=== PATIENT | female | born 1950 | race Caucasian/White ===

== ENCOUNTER → 2017-06-04 | Outpatient (CLI) | payer MEDICARE, BC | END | disposition home or self-care (01) | LOC: KCIC MAMMO 13:14 | DX: Z12.31 Encounter for screening mammogram for malignant neoplasm of breast (principal) | CPT/HCPCS: 77063; 77067 ==

== ENCOUNTER → 2017-08-13 | Day surgery (SDC) | payer MEDICARE, BC ==
[~2017-08-13] MED LIST: LIDOCAINE 2% PF Vial for OR 5 ML VIAL.; PROPOFOL 40 ML IV
[2017-08-13] MEDS: IV RINGERS,LACTATED 1000ML 1,000 ML IV (06:37)
[2017-08-13 07:12] LABS: POC GLUCOSE 148 mg/dL (70-99)
== END ==
LOC: ENDOS 05:55
DX: K64.0 First degree hemorrhoids (principal); K52.9 Noninfective gastroenteritis and colitis, unspecified; M19.90 Unspecified osteoarthritis, unspecified site; E11.9 Type 2 diabetes mellitus without complications; I10 Essential (primary) hypertension; E78.00 Pure hypercholesterolemia, unspecified; E03.9 Hypothyroidism, unspecified; Z88.0 Allergy status to penicillin; Z88.2 Allergy status to sulfonamides; Z83.3 Family history of diabetes mellitus; Z80.41 Family history of malignant neoplasm of ovary; Z79.84 Long term (current) use of oral hypoglycemic drugs; Z79.899 Other long term (current) drug therapy; Z98.51 Tubal ligation status; Z98.890 Other specified postprocedural states
CPT/HCPCS: 45380; 82962; 88305; J2001; J2704

== ENCOUNTER → 2017-09-22 | Outpatient (CLI) | payer MEDICARE, BC | END | disposition home or self-care (01) | LOC: KCIC MRI 12:32 | DX: M51.16 Intervertebral disc disorders with radiculopathy, lumbar region (principal) | CPT/HCPCS: 72148 ==

== ENCOUNTER → 2018-06-30 | Outpatient (CLI) | payer MEDICARE, BC ==
[2017-08-13 07:52] VITALS: BP 147/68
[~2018-06-30] MED LIST changes: +ATEN50TA PO; +CARB15DR3 OP; +FENO145T30 PO; +GABA600T7 PO; +GLIP5TAB10 PO; +IBUP100O25 PO; +LEVO125T5 PO; -LIDOCAINE 2% PF Vial for OR 5 ML VIAL.; +LISI10TA2 PO; +METF500T16 PO; -PROPOFOL 40 ML IV
--- NOTE | 2018-06-30 16:07 | KCIC ---
History: Screening. History of benign left breast biopsy. Bilateral digital CC and MLO views were obtained with mammography and tomosynthesis. Computer aided detection was utilized with iCAD Second Look 7.2-H. Previous: June 04, 2017 and priors. There are scattered fibroglandular densities (Level 2 density).There are no suspicious masses, suspicious microcalcifications or areas of architectural distortion. Benign calcifications. IMPRESSION: Negative mammogram. Patient information was entered into the [employer] reminder system with a target due date for the next screening mammogram. Routine annual screening mammogram in one year advised. BI-RADS Category 1: Negative. If your mammogram demonstrates that you have dense breast tissue, which could hide abnormalities, and if you have other risk factors for breast cancer that have been identified, you might benefit from supplemental screening tests that may be suggested by your ordering physician. Dense breast tissue, in and of itself, is a relatively common condition. This information is not provided to cause undue concern, but rather to raise your awareness and to promote discussion with your physician regarding the presence of other risk factors, in addition to dense breast tissue. A report of your mammography results will be sent to you and your physician. You should contact your physician if you have any questions or concerns regarding this report. A mammogram does not have 100% sensitivity and therefore a negative imaging study should not delay further work up of a suspicious abnormality. "Our facility is accredited by the [employer] Mammography Program." Electronically signed by: Jerry Aragon MD (06/30/2018 4:04 PM) [facility]
== END | disposition home or self-care (01) ==
LOC: KCIC MAMMO 11:46
PROVIDERS: ATTEND Physician Assistant
DX: Z12.31 Encounter for screening mammogram for malignant neoplasm of breast (principal); N64.89 Other specified disorders of breast
CPT/HCPCS: 77063; 77067

== ENCOUNTER → 2018-07-02 | Outpatient (CLI) | payer MEDICARE ==
[2017-08-13 07:52] VITALS: BP 147/68
--- NOTE | 2018-07-02 13:06 | KCIC ---
MRI of the lumbar spine without contrast 07/02/2018 CLINICAL HISTORY: Chronic low back pain which radiates down the left leg. TECHNIQUE: Unenhanced T1-weighted and T2-weighted sagittal and axial and inversion recovery sagittal images of the lumbar spine were obtained. FINDINGS: Comparison study is dated 09/22/2017. Minimal S-shaped curvature of the thoracolumbar spine is seen. Mild anterolisthesis of L4 in relation L5 is noted. Degenerative signal changes are seen involving the L2-3, L3-4, L4-5 and L5-S1 discs. Degenerative signal changes are seen within the marrow surrounding these discs. Loss of height of the L5-S1 disc is noted. At the L1-2 disc space is a minimal generalized disc bulge. Degenerative changes are seen involving the facet joints bilaterally. These findings do not result in significant central spinal canal or neural foraminal stenosis. At the L2-3 disc space there is a mild generalized disc bulge. Superimposed on this disc bulge is a left paracentral focal disc protrusion. This measures 3.5 mm in AP diameter. Degenerative changes are seen involving the facet joints bilaterally. There is moderate ligamentum flavum hypertrophy bilaterally. There is prominence of posterior epidural fat. These findings when combined result in mild to moderate left greater than right central spinal canal stenosis. No neural foraminal stenosis is seen. At the L3-4 disc space there is a mild generalized disc bulge. This is eccentric to the right. Degenerative changes are seen involving the facet joints bilaterally. There is moderate ligamentum flavum hypertrophy bilaterally. There is prominence of the posterior epidural fat. These findings when combined do not result in significant central spinal canal or neural foraminal stenosis. At the L4-5 disc space there is mild generalized disc bulge. This is eccentric to the left. Degenerative changes are seen involving the facet joints bilaterally. There is moderate ligamentum flavum hypertrophy bilaterally. These findings when combined do not result in significant central spinal canal or neural foraminal stenosis. At the L5-S1 disc space there is a mild to moderate generalized disc bulge. Superimposed on this disc bulge is a focal central/left paracentral disc protrusion. This measures 5 mm in AP diameter. Degenerative changes are seen involving the facet joints bilaterally. These findings result in mild left greater than right central spinal canal stenosis. No neural foraminal stenosis is seen. Since the previous examination there has been no significant interval change. IMPRESSION: The changes of degenerative disc disease are seen involving the lumbar spine. These findings result in mild to moderate left greater than right central spinal canal stenosis at L2-3 and mild left greater than right central spinal canal stenosis at L5-S1. No neural foraminal stenosis is seen. Electronically signed by: Gianni Orozco MD (07/02/2018 1:03 PM) [facility]
== END | disposition home or self-care (01) ==
LOC: KCIC MRI 11:50
PROVIDERS: ATTEND Physician Assistant
DX: M51.16 Intervertebral disc disorders with radiculopathy, lumbar region (principal); M48.07 Spinal stenosis, lumbosacral region; M89.38 Hypertrophy of bone, other site; G89.29 Other chronic pain
CPT/HCPCS: 72148

== ENCOUNTER → 2018-10-13 | Outpatient (CLI) | payer MEDICARE ==
[2017-08-13 07:52] VITALS: BP 147/68
[~2018-10-13] MED LIST changes: +IOHEXOL 180 MG/ML 10 ML VIAL. IT ONE; +LIDOCAINE 1% Multi-Dose 20 ML VIAL. ID ONE
--- NOTE | 2018-10-13 13:03 | KCIC ---
Lumbar Myelogram History: Left lumbar radiculopathy, previous surgery many years ago, chronic back pain Technique: Patient was informed of the risks of the procedure to include pain, infection, bleeding, seizures, nerve root injury, and allergic reaction to the contrast. All questions were answered. Patient signed a written consent form for a lumbar myelogram. The patient was placed in a prone oblique position on the fluoroscopy table. External site of the lower back was prepped and draped in the usual sterile fashion. Betadine was utilized for cleansing solution. 1% lidocaine was utilized for local anesthesia at the anticipated site of puncture right L3-4 interlaminar space. A 19-gauge guiding needle was advanced into the soft tissues. Through the guiding needle, a 25 gauge Christian needle was advanced until there was return of cerebral spinal fluid. Approximately 15 cc of Omnipaque 180 were then injected during fluoroscopic visualization. The needles were removed. Bandage was applied. Fluoroscopic spot images including standing images with flexion and extension were acquired of the lumbar spine. The patient was then transferred to the CT department for CT examination of the lumbar spine. There were no immediate complications. Fluoroscopy time: 1 minute 22 seconds, 15 images Findings: There was no evidence of myelographic block. There are anterior extradural defects greatest at L3-4 and L2-3, very minimally at L4-5. There is minimal grade 1 anterior spondylolisthesis at L4-5 very slightly accentuated with flexion. There is degenerative disc disease greatest at L5-S1. There is multilevel spondylosis. Impression: 1. There are anterior extradural defects greatest L2-3 and L3-4 and to lesser degree at L4-5. There is multilevel spondylosis. There is degenerative disc disease greatest at L5-S1. Electronically signed by: Sravan Aguillon MD (10/13/2018 1:00 PM) [facility]
--- NOTE | 2018-10-13 13:03 | KCIC ---
CT lumbar spine exam History: Left lumbar radiculopathy, chronic back pain, surgery many years ago Technique: CT imaging was performed of the lumbar spine after injection for lumbar myelogram. Multiplanar reconstruction images are submitted. Exposure: One or more of the following individualized dose reduction techniques were utilized for this examination: 1. Automated exposure control 2. Adjustment of the mA and/or kV according to patient size 3. Use of iterative reconstruction technique. Comparison: July 02, 2018 lumbar spine MRI exam Findings: Lumbar vertebral body stature is maintained. There is very mild grade 1 anterior spondylolisthesis L4-5. There is nknc-kb-elkmmzyd L5-S1 degenerative disc disease, minimally L2-3 through L4-5. Conus terminates at L1. There is very mild levoscoliosis centered near L2-3. Incidental note is made of hepatic steatosis. T12-L1: Spinal canal and neural foramina are adequate. L1-2: There is mild facet degenerative change. Neural foramina and spinal canal are adequate. L2-L3: There is very minimal disc osteophyte complex and bulge. There is mild buckling of the ligamentum flavum, partially calcified on the right anteriorly. There is rzwr-dg-itktpzjj right greater than left facet degenerative change, some gas in the facet articulations bilaterally. Neural foramina are adequate. Spinal canal is not significantly narrowed, mild indentation upon the ventral thecal sac greater in the left lateral recess. L3-L4: There is moderate to severe facet degenerative change bilaterally, some gas in the facet articulations bilaterally. Spinal canal is adequate. Minimal disc osteophyte complex results in minimal narrowing of the inferior distal left neural foramen, right neural foramen overall adequate. L4-L5: There is fairly severe facet degenerative change bilaterally. There is mild buckling of the ligamentum flavum. Spinal canal is overall adequate. There is more focal disc osteophyte complex in the inferior left neural foramen and proximal extraforaminal region, mild to moderate narrowing of the left neural foramen with disc osteophyte complex near undersurface exiting left L4 nerve root in the distal neural foramen and proximal extraforaminal region without displacement. There is also mild narrowing of the right neural foramen primarily from posteriorly by facet, although also minimal disc osteophyte complex inferiorly. L5-S1: There is disc osteophyte complex. There is also superimposed calcified broad protrusion more centrally, near the medial surfaces of the descending S1 nerve roots without significant displacement or spinal stenosis. There is prominence of epidural fat in the lateral recesses bilaterally, preserved central subarachnoid space. Right neural foramen is adequate. There is gckh-wt-zdiaizwz narrowing of the left neural foramen by disc osteophyte complex and facet, disc osteophyte complex near the extraforaminal left L5 nerve root without significant displacement. Impression: 1. There is mild to moderate left L4-5 and L5-S1 neural foramina compromise as described by facet degenerative change and disc osteophyte complexes, minimal narrowing on the right at L4-5. Calcified protrusion at L5-S1 is near the medial surfaces of the descending S1 nerve roots bilaterally without significant displacement. 2. There is no significant lumbar spinal stenosis, mild indentation upon ventral thecal sac at L2-3 greater in the left lateral recess by disc osteophyte complex and bulge. 3. There is mild to moderate L5-S1 degenerative disc disease, minimally at more superior levels. There is multilevel spondylosis. 4. There is hepatic steatosis. Electronically signed by: Sravan Aguillon MD (10/13/2018 1:00 PM) [facility]
== END | disposition home or self-care (01) ==
LOC: KCIC 10:09
PROVIDERS: ATTEND Neurological Surgery
DX: M48.07 Spinal stenosis, lumbosacral region (principal); M43.16 Spondylolisthesis, lumbar region; M51.16 Intervertebral disc disorders with radiculopathy, lumbar region; M47.26 Other spondylosis with radiculopathy, lumbar region; M47.818 Spondylosis without myelopathy or radiculopathy, sacral and sacrococcygeal region; M53.3 Sacrococcygeal disorders, not elsewhere classified; M25.78 Osteophyte, vertebrae; K76.0 Fatty (change of) liver, not elsewhere classified; I10 Essential (primary) hypertension; E11.9 Type 2 diabetes mellitus without complications; G89.29 Other chronic pain; Z88.2 Allergy status to sulfonamides
CPT/HCPCS: 72132; 72265; Q9965

== ENCOUNTER → 2019-04-05 | Outpatient (CLI) | payer MEDICARE ==
[2017-08-13 07:52] VITALS: BP 147/68
[~2019-04-05] MED LIST changes: +CLOB15CR2 TP; +DOCU-109 PO; +ESTR42.53 VG; +FENO145T3 PO; -FENO145T30 PO; +HYDR-3164 PO; -IOHEXOL 180 MG/ML 10 ML VIAL. IT ONE; -LIDOCAINE 1% Multi-Dose 20 ML VIAL. ID ONE; +TIZA4TAB2 PO; +TRIA15OI TP
[2019-04-05 11:44] LABS: BASO # 0.1 x10^3/uL (0.0-0.2); BASO % 1 % (0-3); EOS # 0.2 x10^3/uL (0.0-0.7); EOS % 2 % (0-3); HEMOGLOBIN 12.8 g/dL (12.0-15.5); LYMPH # 3.7 x10^3/uL (1.0-4.8); LYMPH % 38 % (24-48); MEAN CORPUSCULAR HEMOGLOBIN 30 pg (25-35); MEAN CORPUSCULAR HGB CONC 34 g/dL (31-37); MEAN CORPUSCULAR VOLUME 89 fL (79-100); MONO # 0.6 x10^3/uL (0.0-1.1); MONO % 6 % (0-9); NEUT # 5.2 x10^3/uL (1.8-7.7); NEUT % 53 % (31-73); PLATELET COUNT 445 x10^3/uL (140-400); RED BLOOD COUNT 4.25 x10^6/uL (3.50-5.40); RED CELL DISTRIBUTION WIDTH 12.5 % (11.5-14.5); WHITE BLOOD COUNT 9.9 x10^3/uL (4.0-11.0)
[2019-04-05 12:13] LABS: ALBUMIN 3.6 g/dL (3.4-5.0); ALBUMIN/GLOBULIN RATIO 1.2 (1.0-1.7); CALCIUM 9.1 mg/dL (8.5-10.1); CREATININE 0.8 mg/dL (0.6-1.0); GFR 71.3; POTASSIUM 4.4 mmol/L (3.5-5.1); TOTAL BILIRUBIN 0.3 mg/dL (0.2-1.0); TOTAL PROTEIN 6.7 g/dL (6.4-8.2)
== END | disposition home or self-care (01) ==
LOC: SURGPAT 11:05
PROVIDERS: ATTEND Neurological Surgery
DX: Z01.812 Encounter for preprocedural laboratory examination (principal); M47.26 Other spondylosis with radiculopathy, lumbar region; Z88.2 Allergy status to sulfonamides; Z88.8 Allergy status to other drugs, medicaments and biological substances
CPT/HCPCS: 36415; 80053; 85025; 87641

== ENCOUNTER 2019-04-12 06:55 | Day surgery (SDC) | payer MEDICARE ==
--- NOTE | 2019-04-09 14:18 | HP ---
ADMIT DATE: 04/12/2019. PREOPERATIVE HISTORY AND PHYSICAL Date of surgery : 04/12/2019. HISTORY OF PRESENT ILLNESS: The patient is a pleasant 69-year-old, who continues to have trouble with low back pain and pain, which radiates into the left anterior thigh and leg. She also notices bilateral burning in her feet. She says her left foot can cramp. The problem has been present since 2013. She rates her pain overall as a 5/10. Increasing activity such as standing, walking, bending increased her pain. Rest helps her to a degree. She takes gabapentin and tizanidine. She has had epidural steroid injections, which gave her temporary relief. She has had physical therapy, which was helpful during treatment only. PAST MEDICAL HISTORY: Arthritis, hypertension, diabetes, thyroid disease. PAST SURGICAL HISTORY: Tubal ligation, breast biopsy, appendectomy, hysterectomy, lumbar surgery at [facility] in 2009. FAMILY HISTORY: Cancer and diabetes. 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 She is . Nonsmoker. Does not drink alcohol. ALLERGIES: TETRACYCLINE AND SULFA. CURRENT MEDICATIONS: Atenolol, Caltrate, clobetasol plus estradiol, fenofibrate, gabapentin, glipizide, ibuprofen, levothyroxine, lisinopril, metformin, Mucinex, tizanidine and triamcinolone acetonide. REVIEW OF SYSTEMS: A 12-point review of systems was obtained and is noncontributory except for that mentioned above. PHYSICAL EXAMINATION: NEUROSURGERY EXAMINATION: GENERAL APPEARANCE: Alert, pleasant, in no acute distress. HEAD: Normocephalic and atraumatic. SKIN: Warm and dry. MUSCULOSKELETAL: Lumbar paraspinal muscle bulk is normal, restricted range of motion of the lumbar spine, tnfc-rn-pyyshcwn tenderness of the lower lumbar spine with palpation, normal range of motion of the lower extremities bilaterally. EXTREMITIES: No clubbing, cyanosis or edema. NEUROLOGIC: Alert and oriented x 3, normal recent and remote memory, strength 5/5 in bilateral lower extremities, sensory was intact to light touch in the lower extremities bilaterally except for decrease in the left distal anterior thigh and anterior leg, reflexes were trace and symmetric in bilateral lower extremities, negative straight leg raising bilaterally, normal gait. IMAGING DATA: I reviewed a lumbar myelogram and post-myelogram CT scan. On that study, there is moderately severe spondylosis of the lumbar spine. At L4-5, there is a focal disk osteophyte complex in the inferior left neural foramen and proximal extraforaminal region. This osteophyte did appear to contact the left L4 nerve root. I also reviewed a lower extremity EMG nerve conduction study, which is consistent with L4-5 nerve root radiculopathy. ASSESSMENT/ PLAN: The patient has significant lumbar spondylosis. In addition, there is evidence of nerve root compression on the left at L4-5. I do think that surgery at L4-5 with transfacet exposure as well as hemilaminotomy to decompress both the L4 and L5 roots could be of some benefit to her. We spoke about the rationale, technique and risks as well as expected postoperative course. She understands and would like to proceed. We will make the arrangements. NIGEL MACKAY MD DR: CORAL/tamiko JOB#: [id number] / [id number] MIGUEL A
[~2019-04-12] VITALS: Ht 166.4 cm; Wt 92.5 kg
[~2019-04-12 06:55] MED LIST changes: +BACITRACIN 50,000 UNIT in IV NORMAL SALINE 1000ML BAG 1,000 ML IRR ONE; -DOCU-109 PO; -HYDR-3164 PO
[2019-04-12] MEDS ORDERED: fentaNYL PF VIAL 100 MCG/2 ML VIAL IV PRN ×2 (07:00)
[2019-04-12] MEDS ORDERED: ONDANSETRON PF 4 MG/2 ML VIAL. IV PRN (07:00)
[2019-04-12] MEDS ORDERED: MORPHINE SULFATE 2 MG/ML VIAL. IV PRN (07:00)
[2019-04-12] MEDS ORDERED: HYDROmorphone 2 MG/ML VIAL IV PRN (07:00)
[2019-04-12] MEDS ORDERED: LIDOCAINE 1% PF 2 ML VIAL. ID PRN (07:00)
[2019-04-12] MEDS ORDERED: PROCHLORPERAZINE 10 MG/2 ML VIAL. IV PRN (07:00)
[2019-04-12] MEDS ORDERED: KETOROLAC 60 MG/2 ML VIAL. ONE (07:29)
[2019-04-12] MEDS ORDERED: THROMBIN TOPICAL 20,000 UNIT SPRAY.SYRN KIT TP ONE (07:29)
[2019-04-12] MEDS ORDERED: BUPIVACAINE-EPI 0.5%-1:200000 MPF 30 ML VIAL. ONE (07:29)
[2019-04-12] MEDS ORDERED: GELATIN SPONGE SIZE 100. ONE (07:29)
[2019-04-12] MEDS: IV RINGERS,LACTATED 1000ML 1,000 ML IV SCH ×2 (07:47→17:29)
[2019-04-12] MEDS ORDERED: INSULIN LISPRO 100 UNIT/ML 3ML VIAL for OP,RR ONLY. SQ PRN (08:00)
[2019-04-12] MEDS ORDERED: GLYCOPYRROLATE 1 MG/5 ML VIAL. ONE (08:02)
[2019-04-12] MEDS ORDERED: fentaNYL PF VIAL 100 MCG/2 ML VIAL ONE (08:02)
[2019-04-12] MEDS ORDERED: REMIFENTANIL 2 MG VIAL. IV ONE (08:02)
[2019-04-12] MEDS ORDERED: MIDAZOLAM HCL/PF 2 MG/2 ML VIAL. ONE (08:02)
[2019-04-12] MEDS ORDERED: NEOSTIGMINE METHYLSULFATE 5 MG/5 ML SYRINGE. ONE (08:02)
[2019-04-12] MEDS ORDERED: DESFLURANE > 120 MINUTES IH ONE (08:02)
[2019-04-12] MEDS ORDERED: DEXAMETHASONE SOD PHOS 20 MG/5 ML VIAL. ONE (08:03)
[2019-04-12] MEDS ORDERED: ROCURONIUM 50 MG/5 ML VIAL. ONE (08:03)
[2019-04-12] MEDS ORDERED: PROPOFOL 0 ML IV ONE (08:03)
[2019-04-12] MEDS ORDERED: PROPOFOL 20 ML IV ONE (08:03)
[2019-04-12] MEDS ORDERED: ONDANSETRON PF 4 MG/2 ML VIAL. ONE (08:03)
[2019-04-12] MEDS ORDERED: LIDOCAINE 2% PF 5 ML VIAL. ONE (08:03)
[2019-04-12] MEDS ORDERED: PHENYLEPHRINE 10 MG/ML VIAL. ONE (08:10)
[2019-04-12] MEDS ORDERED: PROPOFOL 50 ML IV ONE (09:32)
--- NOTE | 2019-04-12 10:14 | OP ---
DATE OF SURGERY: 04/12/2019 PREOPERATIVE DIAGNOSES: Lateral recess stenosis and disc osteophyte complex with lumbar radiculopathy, left L4-L5. POSTOPERATIVE DIAGNOSES: Lateral recess stenosis and disc osteophyte complex with lumbar radiculopathy, left, L4-L5. OPERATION PERFORMED: Hemilaminotomy with microdecompression of dura and nerve root, L4-L5, left. The operation was done with EMG monitoring, SSEP monitoring, fluoroscopy, microscopic dissection. SURGEON: Alexey Chen M.D. CAD DETAILER: JESSE Do assisted with the surgery. She assisted with the exposure, the microdecompression as well as the closure. OPERATIVE INDICATIONS: The patient is a pleasant 69-year-old who developed intractable back and left leg pain, which failed conservative measures. On myelography, there was a disc osteophyte complex with lateral stenosis at L4-L5 on the left and I recommended lumbar microsurgery to see if this would help her. She understood the surgery, the risks, she wished to go ahead. DESCRIPTION OF PROCEDURE: Following general endotracheal anesthesia, the patient was positioned prone on the Yaakov table. Lumbar region prepped and draped in standard fashion. LUZMA hose and AV impulse boots were applied for DVT prophylaxis. The microscope was draped. Fluoroscopy was draped and brought into field. Monitoring was established. Ancef 2 grams was given less than 1 hour prior to initiation of the surgery. Using fluoroscopic guidance, a midline incision was made directly over the L4-L5 interspace. I dissected down through skin and subcutaneous tissue, reflected the paraspinal muscles and placed a [place] micro disc retractor. I brought in the microscope and confirmed my position fluoroscopically during this time. I then burred down a generous hemilaminotomy with a high-speed air drill and performed a generous foraminotomy. I grasped and trimmed away the calcified thickened ligamentum flavum, peeled this from medial to lateral and superior to inferior and then I trimmed bone over the L5 root, enlarging the foraminotomy. There were posterolateral spurs compressing the root down on to a bulging disc, but the disc was very firm and I elected not to perform a discectomy. I fully decompressed the entire region. The root was very free. There were a few very large epidural veins paralleling the root, which I coagulated at the level of the disc and fully decompressed the entire region. I then irrigated copiously given antibiotic solution. I used small amounts of bone wax where necessary. I removed the retractor, obtained hemostasis in the muscle and I closed the wound in layers with absorbable suture. The skin was closed with 4-0 subcuticular stitch. The operation went very well. I was quite pleased with the surgery. ALEXEY MACKAY MD DR: CORAL/tamiko JOB#: [id number] / [id number] MIGUEL A
[2019-04-12] MEDS ORDERED: HYDR-3164 PO (11:06)
[2019-04-12] MEDS ORDERED: DOCU-109 PO (11:06)
--- NOTE | 2019-04-12 11:08 | DISCH ---
DISCHARGE INSTRUCTIONS Condition on Discharge Condition on Discharge: Stable Activity After Discharge Activity Instructions for Disc: Activity as tolerated, Avoid exertion Other activity instructions: no driving for a week Bathing Instructions: Shower-keep dressing dry Lifting Instructions after Dis: No heavy lifting, No pulling or pushing, Do not lift >10 pounds Diet after Discharge Additional Diet Restrictions: resume home diet Wound Incision Care Wound/Incision Care: Ice to area for comfort Other wound/incision instructi: may remove dressing in 48 hours if dry then may shower, no soaking Contacting the after DC Call your doctor for: Concerns you may have Follow-Up Follow up with: Dr. Mackay's nurse in 2 weeks [phone] NIGEL MACKAY MD Apr 12, 2019 11:08
[2019-04-12] MEDS ORDERED: HYDROcodone/APAP 5/325MG 1 TAB TABLET PO ONE ×2 (11:45→16:00)
[2019-04-12] MEDS ORDERED: HYDROcodone/APAP 5/325MG 1 TAB TABLET ONE (11:50)
[2019-04-12 11:55] VITALS: BP 117/56
--- NOTE | 2019-04-13 17:06 | PATHOLOGY ---
[facility] Accession Number: [id number] . 01 Material submitted: . vertebral column - LUMBAR DECOMPRESSION . 01 Clinical history: . Lumbar spondylosis with radiculopathy; low back pain . 02 Diagnosis: Segments of fibrocartilaginous tissue and bone, lumbar decompression: - Degenerative changes of fibrocartilaginous tissue. . (JPM:anayeli; 04/13/2019) QMS 04/13/2019 1519 Local . 02 Comment: There is no evidence of an acute inflammatory process or malignancy. (JPM:anayeli; 04/13/2019) . 02 Electronically signed: . Cody Graf MD, Pathologist NPI- [id number] . 01 Gross description: . The specimen is received in formalin, labeled "Iraida Pereyra, lumbar decompression". Received are multiple segments of pale cobb gritty tissue admixed with a slight amount of possible bone measuring 3.0 x 2.9 x 0.7 cm in aggregate dimensions. The specimen is filtered and submitted representatively in cassette A1, following light decalcification. ([facility]; 04/12/2019) QAC/QAC 04/12/2019 1711 Local . 02 Pathologist provided ICD-10: M43.06, M54.16, M54.9 . 02 CPT . 144674, 246168 Specimen Comment: A courtesy copy of this report has been sent to [phone], [phone] Specimen Comment: [id number] Specimen Comment: Report sent to and Specimen Comment: A duplicate report has been generated due to demographic updates. Performed at: [address], [place], [place] [id number] MD Masood Becerra MD Phone: [phone] Performed at: [address] [id number] MD Cody Graf MD Phone: [phone]
== END 2019-04-12 18:36 | disposition home or self-care (01) ==
LOC: SURG 06:55
PROVIDERS: ATTEND Neurological Surgery
DX: M48.061 Spinal stenosis, lumbar region without neurogenic claudication (principal); M47.20 Other spondylosis with radiculopathy, site unspecified; M25.78 Osteophyte, vertebrae; M19.90 Unspecified osteoarthritis, unspecified site; I10 Essential (primary) hypertension; Z98.890 Other specified postprocedural states; E07.9 Disorder of thyroid, unspecified; Z98.51 Tubal ligation status; Z90.49 Acquired absence of other specified parts of digestive tract; Z90.710 Acquired absence of both cervix and uterus; Z83.3 Family history of diabetes mellitus; Z88.8 Allergy status to other drugs, medicaments and biological substances; Z88.1 Allergy status to other antibiotic agents; Z79.899 Other long term (current) drug therapy
CPT/HCPCS: 63047; 76000; 82962; 97161; A7015; J1100; J1885; J2001; J2250; J2405; J2704; J2710; J3010; J3490; J7030; J7120

== ENCOUNTER → 2019-10-12 | Outpatient (CLI) | payer MEDICARE ==
[~2019-10-12] MED LIST changes: -BACITRACIN 50,000 UNIT in IV NORMAL SALINE 1000ML BAG 1,000 ML IRR ONE; -CLOB15CR2 TP; +CLOB15CR27 TP; +DOCU-109 PO; +HYDR-3164 PO
[2019-10-12 14:27] LABS: BASO # 0.1 x10^3/uL (0.0-0.2); BASO % 1 % (0-3); EOS # 0.2 x10^3/uL (0.0-0.7); EOS % 2 % (0-3); HEMATOCRIT 38.2 % (36.0-47.0); HEMOGLOBIN 12.9 g/dL (12.0-15.5); LYMPH # 3.3 x10^3/uL (1.0-4.8); LYMPH % 36 % (24-48); MEAN CORPUSCULAR HEMOGLOBIN 30 pg (25-35); MEAN CORPUSCULAR HGB CONC 34 g/dL (31-37); MEAN CORPUSCULAR VOLUME 90 fL (79-100); MONO # 0.7 x10^3/uL (0.0-1.1); MONO % 7 % (0-9); NEUT % 54 % (31-73); PLATELET COUNT 480 x10^3/uL (140-400); RED BLOOD COUNT 4.26 x10^6/uL (3.50-5.40); RED CELL DISTRIBUTION WIDTH 12.7 % (11.5-14.5); WHITE BLOOD COUNT 9.3 x10^3/uL (4.0-11.0)
[2019-10-12 14:58] LABS: CALCIUM 8.6 mg/dL (8.5-10.1); GFR 55.1; POTASSIUM 4.3 mmol/L (3.5-5.1)
[2019-10-12 15:16] LABS: ALBUMIN 3.5 g/dL (3.4-5.0); ALBUMIN/GLOBULIN RATIO 1.1 (1.0-1.7); TOTAL BILIRUBIN 0.3 mg/dL (0.2-1.0); TOTAL PROTEIN 6.8 g/dL (6.4-8.2)
== END | disposition home or self-care (01) ==
LOC: ONCLAB 14:06
PROVIDERS: ATTEND Internal Medicine Hematology & Oncology
DX: D47.3 Essential (hemorrhagic) thrombocythemia (principal)
CPT/HCPCS: 36415; 80053; 82728; 83540; 83550; 85025

== ENCOUNTER → 2019-11-17 | Outpatient (CLI) | payer MEDICARE, BC ==
--- NOTE | 2019-11-17 17:01 | KCIC ---
Bilateral digital screening mammograms with 3-D tomosynthesis: Reason for examination: Routine screening. Comparison is made to previous studies dated back to 01/05/2016. Bilateral mammograms in CC and oblique projections were obtained with 2-D imaging and 3-D tomosynthesis imaging on a Siemens Inspiration unit and reviewed on the workstation. Interpretation was made with the benefit of CAD. The skin and nipples show no abnormalities. No abnormal axillary lymph nodes are seen. The breast parenchyma shows scattered fatty and fibroglandular density. (Breast density: Category B.) There are no dominant masses, suspicious calcifications or architectural distortion. Benign calcifications are present. Impression: No evidence of malignancy. Recommend routine screening. BI-RAD Category 2: Benign. "Our facility is accredited by the [employer] Mammography Program." This patient's information has been entered into a reminder system for the patient to be notified with the results of her examination and a target date for the next mammogram. Electronically signed by: Moon Quiroga MD (11/17/2019 4:58 PM) [email or web address]
== END | disposition home or self-care (01) ==
LOC: KCIC MAMMO 12:46
PROVIDERS: ATTEND Family Medicine
DX: Z12.31 Encounter for screening mammogram for malignant neoplasm of breast (principal); N64.89 Other specified disorders of breast
CPT/HCPCS: 77063; 77067

== ENCOUNTER → 2020-04-13 | Outpatient (CLI) | payer MEDICARE, BC ==
[~2020-04-13] MED LIST changes: +LISI10TA16 PO; -LISI10TA2 PO
[2020-04-13 13:44] LABS: BASO # 0.1 x10^3/uL (0.0-0.2); BASO % 1 % (0-3); EOS # 0.3 x10^3/uL (0.0-0.7); EOS % 4 % (0-3); HEMATOCRIT 37.8 % (36.0-47.0); HEMOGLOBIN 12.7 g/dL (12.0-15.5); LYMPH % 38 % (24-48); MEAN CORPUSCULAR HEMOGLOBIN 30 pg (25-35); MEAN CORPUSCULAR HGB CONC 34 g/dL (31-37); MEAN CORPUSCULAR VOLUME 89 fL (79-100); MONO # 0.7 x10^3/uL (0.0-1.1); MONO % 9 % (0-9); NEUT # 3.8 x10^3/uL (1.8-7.7); NEUT % 48 % (31-73); PLATELET COUNT 417 x10^3/uL (140-400); RED BLOOD COUNT 4.24 x10^6/uL (3.50-5.40); RED CELL DISTRIBUTION WIDTH 13.2 % (11.5-14.5); WHITE BLOOD COUNT 7.8 x10^3/uL (4.0-11.0)
[2020-04-13 13:55] LABS: CALCIUM 9.3 mg/dL (8.5-10.1); CREATININE 0.8 mg/dL (0.6-1.0); GFR 71.1; POTASSIUM 4.6 mmol/L (3.5-5.1)
[2020-04-13 14:01] LABS: ALBUMIN 3.6 g/dL (3.4-5.0); ALBUMIN/GLOBULIN RATIO 1.1 (1.0-1.7); TOTAL BILIRUBIN 0.4 mg/dL (0.2-1.0); TOTAL PROTEIN 6.9 g/dL (6.4-8.2)
== END ==
LOC: ONCLAB 13:18
PROVIDERS: ATTEND Physician Assistant
DX: D47.3 Essential (hemorrhagic) thrombocythemia (principal)
CPT/HCPCS: 36415; 80053; 83615; 85025

== ENCOUNTER → 2020-07-11 | Outpatient (CLI) | payer MEDICARE, BC ==
[2020-07-11 13:43] LABS: BASO # 0.1 x10^3/uL (0.0-0.2); BASO % 1 % (0-3); EOS # 0.3 x10^3/uL (0.0-0.7); EOS % 3 % (0-3); HEMATOCRIT 37.6 % (36.0-47.0); HEMOGLOBIN 12.8 g/dL (12.0-15.5); LYMPH # 3.7 x10^3/uL (1.0-4.8); LYMPH % 38 % (24-48); MEAN CORPUSCULAR HEMOGLOBIN 30 pg (25-35); MEAN CORPUSCULAR HGB CONC 34 g/dL (31-37); MEAN CORPUSCULAR VOLUME 89 fL (79-100); MONO # 0.6 x10^3/uL (0.0-1.1); MONO % 7 % (0-9); NEUT % 52 % (31-73); PLATELET COUNT 428 x10^3/uL (140-400); RED BLOOD COUNT 4.22 x10^6/uL (3.50-5.40); RED CELL DISTRIBUTION WIDTH 12.7 % (11.5-14.5); WHITE BLOOD COUNT 9.7 x10^3/uL (4.0-11.0)
[2020-07-11 14:27] LABS: % BANDS 5 % (0-9); % EOS 3 % (0-5); % LYMPHS 37 % (24-48); % MONOS 5 % (0-10); % SEGS 50 % (35-66); PLT ESTIMATE INCREASED (ADEQUATE)
== END ==
LOC: ONCLAB 12:54
PROVIDERS: ATTEND Internal Medicine Hematology & Oncology
DX: D47.3 Essential (hemorrhagic) thrombocythemia (principal)
CPT/HCPCS: 36415; 85007; 85025

== ENCOUNTER → 2021-01-16 | Outpatient (CLI) | payer MEDICARE, BC ==
[~2021-01-16] MED LIST changes: +IBUP-1739 PO; -IBUP100O25 PO; +TIZA-75 PO; -TIZA4TAB2 PO
[2021-01-16 13:33] LABS: BASO # 0.1 x10^3/uL (0.0-0.2); BASO % 1 % (0-3); EOS # 0.2 x10^3/uL (0.0-0.7); EOS % 2 % (0-3); HEMATOCRIT 38.5 % (36.0-47.0); LYMPH # 3.9 x10^3/uL (1.0-4.8); LYMPH % 34 % (24-48); MEAN CORPUSCULAR HEMOGLOBIN 31 pg (25-35); MEAN CORPUSCULAR HGB CONC 34 g/dL (31-37); MEAN CORPUSCULAR VOLUME 92 fL (79-100); MONO # 0.7 x10^3/uL (0.0-1.1); MONO % 6 % (0-9); NEUT # 6.4 x10^3/uL (1.8-7.7); NEUT % 57 % (31-73); PLATELET COUNT 490 x10^3/uL (140-400); RED BLOOD COUNT 4.21 x10^6/uL (3.50-5.40); RED CELL DISTRIBUTION WIDTH 12.8 % (11.5-14.5); WHITE BLOOD COUNT 11.2 x10^3/uL (4.0-11.0)
[2021-01-16 13:46] LABS: CALCIUM 9.3 mg/dL (8.5-10.1); CREATININE 0.8 mg/dL (0.6-1.0); GFR 71.1; POTASSIUM 4.1 mmol/L (3.5-5.1)
[2021-01-16 14:05] LABS: ALBUMIN 3.7 g/dL (3.4-5.0); ALBUMIN/GLOBULIN RATIO 1.1 (1.0-1.7); TOTAL BILIRUBIN 0.3 mg/dL (0.2-1.0)
== END ==
LOC: ONCLAB 13:11
PROVIDERS: ATTEND Physician Assistant
DX: D47.3 Essential (hemorrhagic) thrombocythemia (principal)
CPT/HCPCS: 36415; 80053; 82728; 83540; 83550; 85025

== ENCOUNTER → 2021-04-18 | Outpatient (CLI) | payer MEDICARE, BC ==
[2021-04-18 12:40] LABS: BASO # 0.1 x10^3/uL (0.0-0.2); BASO % 1 % (0-3); EOS # 0.2 x10^3/uL (0.0-0.7); EOS % 2 % (0-3); HEMATOCRIT 39.3 % (36.0-47.0); HEMOGLOBIN 13.1 g/dL (12.0-15.5); LYMPH # 3.7 x10^3/uL (1.0-4.8); LYMPH % 31 % (24-48); MEAN CORPUSCULAR HEMOGLOBIN 30 pg (25-35); MEAN CORPUSCULAR HGB CONC 33 g/dL (31-37); MEAN CORPUSCULAR VOLUME 91 fL (79-100); MONO # 0.8 x10^3/uL (0.0-1.1); MONO % 7 % (0-9); NEUT # 7.1 x10^3/uL (1.8-7.7); NEUT % 60 % (31-73); PLATELET COUNT 461 x10^3/uL (140-400); RED BLOOD COUNT 4.32 x10^6/uL (3.50-5.40); WHITE BLOOD COUNT 11.9 x10^3/uL (4.0-11.0)
[2021-04-18 12:55] LABS: CALCIUM 8.7 mg/dL (8.5-10.1); CREATININE 0.8 mg/dL (0.6-1.0); GFR 70.9; POTASSIUM 4.2 mmol/L (3.5-5.1)
[2021-04-18 13:12] LABS: ALBUMIN 3.5 g/dL (3.4-5.0); ALBUMIN/GLOBULIN RATIO 0.9 (1.0-1.7); TOTAL BILIRUBIN 0.3 mg/dL (0.2-1.0); TOTAL PROTEIN 7.4 g/dL (6.4-8.2)
== END ==
LOC: ONCLAB 12:13
PROVIDERS: ATTEND Physician Assistant
DX: D47.3 Essential (hemorrhagic) thrombocythemia (principal)
CPT/HCPCS: 36415; 80053; 82728; 83540; 83550; 85025